=== PATIENT | female | born 1950 | race Caucasian/White ===

== ENCOUNTER → 2018-10-26 | Outpatient (CLI) | payer OTHER ==
[~2018-10-26] MED LIST: ALL DAY ALLERGY10 M1; MELA3; THYR60
== END | disposition home or self-care (01) ==
LOC: PLD 12:05 → LAB SHORT 12:05
DX: C44.519 Basal cell carcinoma of skin of other part of trunk (principal); L57.0 Actinic keratosis
CPT/HCPCS: 88305

== ENCOUNTER → 2019-02-07 | Outpatient (CLI) | payer OTHER ==
[2019-02-09 15:07] LABS: HPV 16 Positive (Negative); HPV 18 Negative (Negative); HPV OTHER HR TYPES Positive (Negative)
== END | disposition home or self-care (01) ==
LOC: LAB SHORT 13:48 → LAB 13:48
PROVIDERS: Obstetrics & Gynecology Gynecology
DX: Z91.89 Other specified personal risk factors, not elsewhere classified (principal)
CPT/HCPCS: 87624; 87625; G0123

== ENCOUNTER → 2020-03-27 | Outpatient (CLI) | payer OTHER | END | disposition home or self-care (01) | LOC: LAB SHORT 07:56 → PLD 07:56 | DX: L82.1 Other seborrheic keratosis (principal) | CPT/HCPCS: 88305 ==

== ENCOUNTER → 2020-11-10 | Outpatient (CLI) | payer OTHER | END | disposition home or self-care (01) | LOC: LAB SHORT 12:22 → PLD 12:22 | DX: L57.0 Actinic keratosis (principal) | CPT/HCPCS: 88305 ==

== ENCOUNTER → 2024-08-16 | Outpatient (CLI) | payer OTHER ==
[2024-08-16 20:12] LABS: Free Thyroxine 0.98 ng/dL (0.70-1.60); Thyroid Stimulating Hormone 2.76 uIU/mL (0.360-4.800); Triiodothyronine, Free 2.54 pg/mL (2.18-3.98)
== END ==
LOC: LAB 13:23 → LAB SHORT 13:23
PROVIDERS: Internal Medicine
DX: E03.9 Hypothyroidism, unspecified (principal)
CPT/HCPCS: 84439; 84443; 84481

== ENCOUNTER → 2024-09-25 | Outpatient (CLI) | payer OTHER ==
[2024-09-25 15:48] LABS: Free Thyroxine 1.94 ng/dL (0.70-1.60); Thyroid Stimulating Hormone 0.023 uIU/mL (0.360-4.800)
== END ==
LOC: LAB 13:31 → LAB SHORT 13:31
PROVIDERS: Internal Medicine
DX: E03.9 Hypothyroidism, unspecified (principal)
CPT/HCPCS: 84439; 84443

== ENCOUNTER → 2024-11-13 | Outpatient (CLI) | payer OTHER ==
[2024-11-13 17:53] LABS: Free Thyroxine 1.61 ng/dL (0.70-1.60)
[2024-11-13 17:55] LABS: Thyroid Stimulating Hormone <0.005 uIU/mL (0.360-4.800)
== END | disposition home or self-care (01) ==
LOC: LAB 07:45 → LAB SHORT 07:45
PROVIDERS: Internal Medicine
DX: E03.9 Hypothyroidism, unspecified (principal)
CPT/HCPCS: 84439; 84443

== ENCOUNTER 2025-01-31 06:30 | Day surgery (SDC) | payer OTHER ==
[~2025-01-31] VITALS: Ht 162.6 cm; Wt 65.7 kg
[2025-01-31] MEDS ORDERED: LEVOCETIRIZINE D5 MG (07:18)
[2025-01-31] MEDS ORDERED: ESTRADIOL42.5 GM (07:18)
[2025-01-31] MEDS ORDERED: FLUTICASONE PRO16 GM (07:18)
[2025-01-31] MEDS ORDERED: EUTHYROX88 MC1 (07:18)
[2025-01-31] MEDS ORDERED: VITAMIN C125 MG (07:19)
[2025-01-31] MEDS ORDERED: ERGO400 (07:20)
[2025-01-31] MEDS ORDERED: CALCIUM 250-D1 EAC1 (07:20)
[2025-01-31] MEDS ORDERED: B-12500 MC2 (07:21)
[2025-01-31] MEDS ORDERED: UBID10 (07:21)
[2025-01-31] MEDS ORDERED: MONT10T (07:22)
[2025-01-31] MEDS ORDERED: FISH OIL 1,2001 EAC4 (07:22)
[2025-01-31] MEDS ORDERED: Fexofenadine HC60 MG (07:22)
[2025-01-31] MEDS ORDERED: VITAMIN B-1250 MG (07:23)
--- NOTE | 2025-01-31 09:21 | NUR ---
01/31/[address] DISCUSSED PROCEDURE WITH PT. NO POLYPS TODAY. FOLLOWUP IN 5 YEARS PREVIOUSLY HAD 1CM POLYP
[2025-01-31 09:23] VITALS: BP 106/75
== END 2025-01-31 09:10 | disposition home or self-care (01) ==
LOC: ORSCSDS 06:30
PROVIDERS: Surgery
PROC: 0DJD8ZZ Inspection of Lower Intestinal Tract, Via Natural or Artificial Opening Endoscopic (ICD-10-PCS; principal; 2025-01-31 08:00)
DX: Z12.11 Encounter for screening for malignant neoplasm of colon (principal); Z86.0101 Personal history of adenomatous and serrated colon polyps; E78.5 Hyperlipidemia, unspecified; E03.9 Hypothyroidism, unspecified; Z79.899 Other long term (current) drug therapy
CPT/HCPCS: J2704; J7120

== ENCOUNTER → 2025-02-05 | Outpatient (CLI) | payer OTHER ==
[~2025-02-05] MED LIST changes: +B-12500 MC2; +CALCIUM 250-D1 EAC1; +ERGO400; +ESTRADIOL42.5 GM; +EUTHYROX88 MC1; +FISH OIL 1,2001 EAC4; +FLUTICASONE PRO16 GM; +Fexofenadine HC60 MG; +LEVOCETIRIZINE D5 MG; +MONT10T; +UBID10; +VITAMIN B-1250 MG; +VITAMIN C125 MG
[2025-02-05 12:02] LABS: Thyroid Stimulating Hormone 0.021 uIU/mL (0.360-4.800)
== END ==
LOC: LAB 10:39 → LAB SHORT 10:39
PROVIDERS: Internal Medicine
DX: E03.9 Hypothyroidism, unspecified (principal)
CPT/HCPCS: 84439; 84443

== ENCOUNTER → 2025-05-23 | Outpatient (CLI) | payer OTHER ==
[2025-05-23 14:57] LABS: Alanine Aminotransfer (ALT/SGP 24 U/L (12-78); Albumin, Blood 4.2 g/dL (3.4-5.0); Albumin/Globulin Ratio 1.4 (0.8-1.8); Anion Gap 9 mmol/L (3-11); Aspartate Aminotrans (AST/SGOT 15 U/L (12-37); Bilirubin, Total 0.5 mg/dL (0.1-1.0); Blood Urea Nitrogen 16 mg/dL (8-24); CHOL/HDL RATIO 2.6; CO2, Blood 28 mmol/L (21-32); Calcium, Blood 9.2 mg/dL (8.5-10.1); Chloride, Blood 102 mmol/L (98-108); Cholesterol 248 mg/dL (50-200); Creatinine, Blood 0.81 mg/dL (0.40-1.00); Globulin, Blood 2.9 g/dL (2.2-4.0); Glucose, Blood 104 mg/dL (70-99); HDL Cholesterol 94 mg/dL (>39); LDL/HDL RATIO 1.4; Low Density Lipoprotein Chol 135 mg/dL (0-110); Potassium, Blood 4.1 mmol/L (3.5-5.5); Sodium, Blood 135 mmol/L (136-145); Thyroid Stimulating Hormone 0.526 uIU/mL (0.360-4.800); Total Protein, Blood 7.1 g/dL (6.4-8.2); Triglycerides 93 mg/dL (30-160); Very Low Density Lipoprot Chol 18 mg/dL (6-32)
== END ==
LOC: LAB 13:30 → LAB SHORT 13:30
PROVIDERS: Internal Medicine
DX: E78.00 Pure hypercholesterolemia, unspecified (principal); E03.9 Hypothyroidism, unspecified
CPT/HCPCS: 80053; 80061; 84439; 84443; 84481